=== PATIENT | female | born 1940 | race Caucasian/White ===

== ENCOUNTER 2021-05-22 09:35 | Outpatient (CLI) | payer MEDICARE, BC | END 2021-05-22 09:36 | disposition home or self-care (01) | LOC: ULT 09:35 | PROVIDERS: ATTEND Internal Medicine Gastroenterology | DX: K74.60 Unspecified cirrhosis of liver (principal) | CPT/HCPCS: 76700 ==

== ENCOUNTER 2022-01-20 11:03 | Outpatient (CLI) | payer MEDICARE, BC ==
[2022-01-20] MEDS ORDERED: Iopamidol-370 76% 500 ML 1 ML ONE (15:44)
== END 2022-01-20 11:04 | disposition home or self-care (01) ==
LOC: BICCT 11:03
PROVIDERS: ATTEND Internal Medicine Hematology & Oncology
DX: C22.0 Liver cell carcinoma (principal); K74.60 Unspecified cirrhosis of liver; I82.890 Acute embolism and thrombosis of other specified veins; K80.20 Calculus of gallbladder without cholecystitis without obstruction; R93.2 Abnormal findings on diagnostic imaging of liver and biliary tract
CPT/HCPCS: 74170; 82565; Q9967